=== PATIENT | female | born 1945 | race Caucasian/White ===

== ENCOUNTER 2022-09-11 23:05 | Inpatient (IN) | payer OTHER, MEDICARE, BC ==
[2022-09-11] MEDS ORDERED: fentaNYL 50 mcg/mL 1 mL Vial ONE (23:49)
[2022-09-11] MEDS ORDERED: Morphine 4 MG/ML VIAL ONE (23:52)
[2022-09-12] MEDS ORDERED: Dextrose 50% Abboject 50 ML SYRINGE SLOW IVP PRN (01:06)
[2022-09-12] MEDS ORDERED: Ipratropium/Albuterol 3 ML NEB NEB PRN (01:06)
[2022-09-12] MEDS ORDERED: Insulin Regular 300 UNITS/3 ML VIAL SC PRN (01:06)
[2022-09-12] MEDS ORDERED: Ondansetron PF 4 MG/2 ML Vial IVP PRN (01:06)
[2022-09-12] MEDS ORDERED: Dextrose 5% in Water 1,000 ML IV PRN (01:06)
[2022-09-12] MEDS ORDERED: Magnesium 2 GM/50 ML(in water) 2 GM in Premix Bag 1 BAG IVPB SCH (01:30)
[2022-09-12] MEDS ORDERED: Potassium Chloride 20 MEQ in Premix Bag 1 BAG IVPB SCH (02:00)
[2022-09-12 02:30] VITALS: BMI 21.4
[2022-09-12] MEDS: Cyclobenzaprine 10 MG TAB PO PRN ×2 (02:39→23:11)
[2022-09-12] MEDS: Sodium Chloride 0.9% 1,000 ML IV SCH ×3 (02:40→17:54)
[2022-09-12] MEDS: Morphine 2 MG/ML VIAL SLOW IVP PRN ×4 (02:48→14:41)
[2022-09-12] MEDS: Acetaminophen 325 MG TAB PO SCH ×4 (05:33→23:08)
[2022-09-12 05:54] LABS: Phosphorus 2.2 mg/dL (2.3-4.7)
[2022-09-12 05:57] LABS: #Eosinphils 0.1 thou/uL (0.0-0.7); #Lymphocytes 0.7 thou/uL (1.20-3.40); #Monocytes 0.5 thou/uL (0.11-0.59); #Neutrophils 4.4 thou/uL (1.40-6.50); %Basophils 0.2 % (0.0-1.0); %Eosinophils 1.3 % (0.0-10.0); %Monocytes 8.5 % (0.0-10.0); Hemoglobin 12.7 g/dL (12.0-16.0); Mean Corpuscular HGB CONC 32.8 g/dL (32.0-36.0); Mean Corpuscular Hemoglobin 30.6 pg (27.0-31.0); Mean Corpuscular Volume 93.3 fl (78.0-98.0); Mean Platelet Volume 7.3 fL (7.4-10.4); Platelet Count 117 10x3/uL (130-400); RBC Distribution Width 11.9 % (11.5-14.5); Red Blood Cell (RBC) Count 4.14 mill/uL (4.20-5.40); White Blood Cell (WBC) Count 5.7 10x3/uL (4.8-10.8)
[2022-09-12 05:58] LABS: Anion Gap 11 mmol/L (10-20); BUN (Urea Nitrogen) 11 mg/dL (9.8-20.1); Calc. Creatinine Clearance 77 mL/min (70-130); Calcium 8.6 mg/dL (7.8-10.44); Carbon Dioxide 26 mmol/L (23-31); Chloride 106 mmol/L (98-107); Estimated GFR 93; Glucose 110 mg/dL (83-110); Magnesium 2.5 mg/dL (1.6-2.6); Potassium 3.7 mmol/L (3.5-5.1); Sodium 139 mmol/L (136-145)
[2022-09-12 05:59] LABS: PTT 26.9 sec (22.9-36.1)
[2022-09-12] MEDS ORDERED: Potassium Phosphate 30 MMOL in Sodium Chloride 0.9% 250 ML 250 ML IVPB SCH (09:00)
[2022-09-12 09:06] LABS: Anion Gap 12 mmol/L (10-20); BUN (Urea Nitrogen) 10 mg/dL (9.8-20.1); Calc. Creatinine Clearance 81 mL/min (70-130); Calcium 8.4 mg/dL (7.8-10.44); Carbon Dioxide 21 mmol/L (23-31); Chloride 108 mmol/L (98-107); Estimated GFR 94; Glucose 98 mg/dL (83-110); Potassium 4.2 mmol/L (3.5-5.1); Sodium 137 mmol/L (136-145)
[2022-09-12] MEDS: Famotidine/PF 20 mg/2ml Vial SLOW IVP SCH ×2 (09:14→20:26)
[2022-09-12] MEDS: Polyethylene Glycol 3350 17 GM Packet PO SCH (09:14)
[2022-09-12] MEDS: Senokot S 8.6-50 MG TAB PO SCH ×2 (09:15→20:26)
[2022-09-12] MEDS ORDERED: CEFAZOLIN 2 GM VIAL ONE (10:36)
[2022-09-12] MEDS ORDERED: Sodium Chloride 0.9% 100 ML ONE (10:36)
[2022-09-12] MEDS ORDERED: fentaNYL PF 100 MCG/2 ML SYRINGE ONE (10:47)
[2022-09-12] MEDS ORDERED: Dexmedetomidine 200 MCG/2 ML VIAL ONE ×2 (11:04→11:26)
[2022-09-12] MEDS ORDERED: PROPOFOL 200 MG/20 ML VIAL ONE (11:34)
[2022-09-12] MEDS ORDERED: Rocuronium Bromide 10 MG/ML (10ML VIAL) ONE (11:34)
[2022-09-12] MEDS ORDERED: NEOSTIGMINE 3 MG/3 ML SYR 3 MG/3 ML SYRINGE ONE (11:34)
[2022-09-12] MEDS ORDERED: Glycopyrrolate 0.2 MG/ML 5 ML SYRINGE ONE (11:34)
[2022-09-12] MEDS ORDERED: ePHEDrine Sulfate 50 MG/10 ML VIAL ONE (11:34)
[2022-09-12] MEDS ORDERED: Ondansetron PF 4 MG/2 ML Vial ONE (11:34)
[2022-09-12] MEDS ORDERED: PHENYLEPHRINE-NS 100 MCG/ML 10 ML SYRINGE ONE (11:34)
[2022-09-12] MEDS ORDERED: Ondansetron HCl/PF 4 MG/2 ML Vial IVP PRN (13:26)
[2022-09-12] MEDS ORDERED: Promethazine HCl 25 MG/ML VIAL IM PRN (13:26)
[2022-09-12] MEDS ORDERED: Labetalol HCl 100 MG/20 ML VIAL ONE (13:37)
[2022-09-12] MEDS: CEFAZOLIN 1 GM in Sodium Chloride 0.9% 100 ML IVPB SCH (20:25)
[2022-09-12] MEDS: Acetaminophen/Codeine 30-300mg Tablet PO PRN (20:35)
[2022-09-12] MEDS: Melatonin 3 MG TAB PO PRN (23:07)
[2022-09-13] MEDS: Sodium Chloride 0.9% 1,000 ML IV SCH (02:24)
[2022-09-13] MEDS: Acetaminophen/Codeine 30-300mg Tablet PO PRN ×3 (03:25→20:10)
[2022-09-13] MEDS: CEFAZOLIN 1 GM in Sodium Chloride 0.9% 100 ML IVPB SCH (03:26)
[2022-09-13] MEDS: Acetaminophen 325 MG TAB PO SCH ×4 (05:21→21:50)
[2022-09-13] MEDS: Morphine 2 MG/ML VIAL SLOW IVP PRN ×2 (05:22→13:48)
[2022-09-13 05:33] LABS: #Eosinphils 0.1 thou/uL (0.0-0.7); #Lymphocytes 0.5 thou/uL (1.20-3.40); #Monocytes 0.5 thou/uL (0.11-0.59); #Neutrophils 6.6 thou/uL (1.40-6.50); %Basophils 0.3 % (0.0-1.0); %Eosinophils 0.9 % (0.0-10.0); %Lymphocytes 6.1 % (21.0-51.0); %Monocytes 7.1 % (0.0-10.0); %Neutrophils 85.6 % (42.0-75.0); Hemoglobin 11.3 g/dL (12.0-16.0); Mean Corpuscular HGB CONC 33.1 g/dL (32.0-36.0); Mean Corpuscular Hemoglobin 31.2 pg (27.0-31.0); Mean Corpuscular Volume 94.3 fl (78.0-98.0); Mean Platelet Volume 7.7 fL (7.4-10.4); Platelet Count 119 10x3/uL (130-400); Red Blood Cell (RBC) Count 3.63 mill/uL (4.20-5.40); White Blood Cell (WBC) Count 7.7 10x3/uL (4.8-10.8)
[2022-09-13 05:49] LABS: Magnesium 1.9 mg/dL (1.6-2.6); Phosphorus 2.1 mg/dL (2.3-4.7)
[2022-09-13] MEDS: Polyethylene Glycol 3350 17 GM Packet PO SCH (08:17)
[2022-09-13] MEDS: Senokot S 8.6-50 MG TAB PO SCH ×2 (08:17→20:08)
[2022-09-13] MEDS: Famotidine/PF 20 mg/2ml Vial SLOW IVP SCH ×2 (08:17→20:07)
[2022-09-13] MEDS ORDERED: Magnesium 2 GM/50 ML(in water) 2 GM in Premix Bag 1 BAG IVPB SCH (09:00)
[2022-09-13] MEDS ORDERED: Sodium Phosphate 30 MMOL in Sodium Chloride 0.9% 100 ML IVPB SCH (09:00)
[2022-09-13 11:00] LABS: Bilirubin Negative (Negative); Blood, Urine Small (Negative); Glucose, Urine (Dipstick) Negative (Negative); Ketone, Urine Negative (Negative); Leukocyte Negative (Negative); Nitrite Negative (Negative); Protein, Urine (Dipstick) Negative (Neg-Trace); Specific Gravity, Urine 1.025 (1.005-1.030); Urobilinogen 0.2 mg/dL (Less than 2)
[2022-09-13 11:02] LABS: Clarity Hazy (Clear)
[2022-09-13 11:24] LABS: RBC/HPF 0-3 HPF (0-3); WBC/HPF 0-3 HPF (0-3)
[2022-09-13 11:25] LABS: Bacteria/HPF None Seen HPF (None Seen); Squamous Epithelial None Seen HPF (0-3)
[2022-09-13] MEDS: Melatonin 3 MG TAB PO PRN (20:08)
[2022-09-13 22:10] LABS: Hemoglobin A1c 5.2 % (4.0-6.0)
[2022-09-14] MEDS: Acetaminophen 325 MG TAB PO SCH ×4 (05:17→23:22)
[2022-09-14 05:36] LABS: #Eosinphils 0.2 thou/uL (0.0-0.7); #Monocytes 0.8 thou/uL (0.11-0.59); #Neutrophils 7.5 thou/uL (1.40-6.50); %Basophils 0.3 % (0.0-1.0); %Eosinophils 2.4 % (0.0-10.0); %Lymphocytes 12.5 % (21.0-51.0); %Monocytes 7.9 % (0.0-10.0); %Neutrophils 76.5 % (42.0-75.0); Hemoglobin 10.9 g/dL (12.0-16.0); Mean Corpuscular Hemoglobin 29.9 pg (27.0-31.0); Mean Corpuscular Volume 93.7 fl (78.0-98.0); Mean Platelet Volume 9.7 fL (7.4-10.4); Platelet Count 132 10x3/uL (130-400); RBC Distribution Width 13.2 % (11.5-14.5); Red Blood Cell (RBC) Count 3.64 mill/uL (4.20-5.40); White Blood Cell (WBC) Count 9.8 10x3/uL (4.8-10.8)
[2022-09-14 05:59] LABS: Anion Gap 8 mmol/L (10-20); BUN (Urea Nitrogen) 11 mg/dL (9.8-20.1); Calc. Creatinine Clearance 72 mL/min (70-130); Calcium 8.4 mg/dL (7.8-10.44); Carbon Dioxide 29 mmol/L (23-31); Chloride 104 mmol/L (98-107); Estimated GFR 91; Glucose 114 mg/dL (83-110); Magnesium 2.1 mg/dL (1.6-2.6); Phosphorus 1.8 mg/dL (2.3-4.7); Potassium 3.7 mmol/L (3.5-5.1); Sodium 137 mmol/L (136-145)
[2022-09-14] MEDS ORDERED: Potassium Phosphate 30 MMOL in Sodium Chloride 0.9% 250 ML 250 ML IVPB SCH (09:00)
[2022-09-14] MEDS: Acetaminophen/Codeine 30-300mg Tablet PO PRN ×3 (09:56→23:16)
[2022-09-14] MEDS: Cyclobenzaprine 10 MG TAB PO PRN ×2 (09:56→16:59)
[2022-09-14] MEDS: Senokot S 8.6-50 MG TAB PO SCH ×2 (09:57→20:06)
[2022-09-14] MEDS: Polyethylene Glycol 3350 17 GM Packet PO SCH (09:57)
[2022-09-14] MEDS ORDERED: traMADol HCl 50 MG TAB PO SCH (12:30)
[2022-09-14] MEDS ORDERED: Morphine 4 MG/ML VIAL ONE (12:39)
[2022-09-14] MEDS ORDERED: Morphine 2 MG/ML VIAL SLOW IVP SCH (12:45)
[2022-09-15] MEDS: Cyclobenzaprine 10 MG TAB PO PRN (00:17)
[2022-09-15] MEDS: Melatonin 3 MG TAB PO PRN (00:17)
[2022-09-15] MEDS: Acetaminophen/Codeine 30-300mg Tablet PO PRN ×2 (04:54→12:42)
[2022-09-15] MEDS: Acetaminophen 325 MG TAB PO SCH ×2 (05:10→07:35)
[2022-09-15] MEDS: Polyethylene Glycol 3350 17 GM Packet PO SCH (07:35)
[2022-09-15] MEDS: Senokot S 8.6-50 MG TAB PO SCH (07:36)
[2022-09-15] MEDS ORDERED: Cyclobenzaprine 10 MG TAB PO PRN (08:02)
[2022-09-15 12:14] VITALS: BP 114/71; TEMP 98.4
== END 2022-09-15 13:00 | DRG 522 ==
LOC: ERS 23:05 → SURG A 09-12 01:06
PROVIDERS: ADMIT Surgery; ATTEND Surgery
PROC: 0SRR0JZ Replacement of Right Hip Joint, Femoral Surface with Synthetic Substitute, Open Approach (ICD-10-PCS; principal; 2022-09-12)
DX: S72.011A Unspecified intracapsular fracture of right femur, initial encounter for closed fracture (principal); F03.90 Unspecified dementia, unspecified severity, without behavioral disturbance, psychotic disturbance, mood disturbance, and anxiety; W01.0XXA Fall on same level from slipping, tripping and stumbling without subsequent striking against object, initial encounter; Z98.890 Other specified postprocedural states; Z79.899 Other long term (current) drug therapy
CPT/HCPCS: 36415; 36416; 71045; 71046; 72170; 80048; 81003; 81015; 83036; 83735; 84100; 85025; 85610; 85730; 86850; 86900; 86901; 87040; 93005; 93010; 93970; C1889; J0690; J1650; J1815; J2270; J2272; J2405; J2704; J3010; J3475; J3480; J3490; J7050; S0028

== ENCOUNTER 2023-11-30 09:38 | Outpatient (CLI) | payer MEDICARE | END 2023-11-30 09:39 | disposition home or self-care (01) | LOC: BICMAMMO 09:38 | PROVIDERS: ATTEND Family Medicine | DX: R92.8 Other abnormal and inconclusive findings on diagnostic imaging of breast (principal) | CPT/HCPCS: 76642; 77065; G0279 ==